=== PATIENT | female | born 1935 | race Caucasian/White ===

== ENCOUNTER 2021-12-13 14:15 | Inpatient (IN) | payer MEDICARE, OTHER ==
[~2021-12-13] VITALS: Ht 160 cm; Wt 68.6 kg
[~2021-12-13 14:15] MED LIST: CLON0.5T3 PO; ESCI10TA PO; ESOM40CA PO; MELO7.5T12 PO; MEMA10TA PO; PREG150C PO; PREG75CA PO; WARF7.5T23 PO
[2021-12-13] MEDS ORDERED: NITROGLYCERIN OINT 1 GM PACKET TP ONE ×2 (14:30→14:36)
[2021-12-13] MEDS ORDERED: ASPIRIN 325 MG TABLET PO ONE (14:30)
[2021-12-13] MEDS ORDERED: ASPIRIN 325 MG TABLET ONE (14:36)
[2021-12-13 14:49] LABS: HEMATOCRIT 34.2 % (31.2-41.9); MEAN CORPUSCULAR HEMOGLOBIN 30.7 uug (24.7-32.8); MEAN CORPUSCULAR VOLUME 91.6 fL (75.5-95.3); PLATELET COUNT (AUTO) 91 K/uL (179-408)
[2021-12-13 14:59] LABS: CARBON DIOXIDE 33 mmol/L (21-32); CHLORIDE 104 mmol/L (98-107); CREATININE 0.7 mg/dL (0.6-1.3); GLUCOSE 115 mg/dL (74-106); POTASSIUM 4.6 mmol/L (3.5-5.1); UREA NITROGEN, BLOOD 17 mg/dL (7-18)
[2021-12-13 15:08] LABS: ALANINE AMINOTRANSFERASE 23 U/L (14-59); ALKALINE PHOSPHATASE 47 U/L (50-136); ASPARTATE AMINOTRANSFERASE 19 U/L (15-37); BILIRUBIN,DIRECT 0.2 mg/dL (0.0-0.2); BILIRUBIN,TOTAL 0.3 mg/dL (0.2-1.0); TOTAL PROTEIN, SERUM 5.8 g/dL (6.4-8.2)
[2021-12-13] MEDS ORDERED: MAGNESIUM HYDROXIDE 30 ML LIQUID UDC PO PRN (15:45)
[2021-12-13] MEDS ORDERED: TEMAZEPAM 15 MG CAPSULE PO PRN (15:45)
[2021-12-13] MEDS ORDERED: REMEDY ESSENTIAL ZINC PASTE 113 GM TP PRN (15:45)
[2021-12-13] MEDS ORDERED: ONDANSETRON 4 MG/2 ML VIAL IV PRN (15:45)
[2021-12-13] MEDS ORDERED: MORPHINE SULFATE 2 MG/1 ML DISP.SYRIN IV PRN (15:45)
[2021-12-13] MEDS ORDERED: ENOXAPARIN SODIUM 40 MG/0.4 ML DISP.SYRIN SQ SCH (15:45)
[2021-12-13] MEDS ORDERED: HYDROCODONE/APAP 10-325 MG TABLET PO PRN (15:45)
[2021-12-13] MEDS ORDERED: NITROGLYCERIN 0.4 MG/TAB BOTTLE SL PRN ×2 (16:00→20:59)
--- NOTE | 2021-12-13 17:15 | NUR ---
Called third floor for telemetry bed. Stated that patient will be transferred next shift.
--- NOTE | 2021-12-13 18:09 | NUR ---
Patient is to go to room 319 next shift.
[2021-12-13] MEDS ORDERED: LANS30CA56 PO (18:38)
[2021-12-13] MEDS ORDERED: ALEN70TA80 PO (18:38)
[2021-12-13] MEDS ORDERED: CLON1TAB12 PO (18:38)
[2021-12-13] MEDS ORDERED: ATOR40TA PO (18:38)
[2021-12-13] MEDS ORDERED: LEVO75TA7 PO (18:38)
[2021-12-13] MEDS ORDERED: HOME MED MISCELLANEOUS XX SCH (19:00)
[2021-12-13] MEDS ORDERED: ENOXAPARIN SODIUM 30 MG/0.3 ML DISP.SYRIN ONE (19:40)
--- NOTE | 2021-12-13 20:36 | NUR ---
Called to give report to Delaney MEJIA, states she will call me back for report.
--- NOTE | 2021-12-13 20:48 | NUR ---
Report given to Delaney MEJIA
[2021-12-13] MEDS ORDERED: NITROGLYCERIN 0.4 MG/TAB BOTTLE SL ONE (20:54)
--- NOTE | 2021-12-13 21:48 | NUR ---
Pt. admitted to Tele room 319, under care of Jonnathan Jimenez PACK TRAIN DRIVER Belongings List completed. Pt transferred in stable condition.
[2021-12-13 21:50] VITALS: BP 150/71
[2021-12-13] MEDS: ATORVASTATIN 40 MG TABLET PO SCH (22:11)
[2021-12-13] MEDS: ACETAMINOPHEN 325 MG TABLET PO PRN (22:12)
--- NOTE | 2021-12-13 22:15 | NUR ---
Admitted tele pt from ER accompanied by ROBERTO Conner. She is alert and oriented x4, anxious, able to make needs known. Denies pain and discomfort at this time. Wants to make sure she'll be able to take her night meds. Initial and full body assessment done. IV access on L hand G#22 patent and intact. Pt refused to have urine specimen collected, stated she is cold and wants to take her night meds. All needs attended, oriented to room. Call light placed within reach. Will continue to monitor.
[2021-12-13] MEDS: DOCUSATE SODIUM 100 MG CAPSULE PO SCH (23:04)
[2021-12-13] MEDS: CLONAZEPAM 1 MG TABLET PO SCH (23:04)
[2021-12-13] MEDS: PREGABALIN 25 MG CAPSULE PO SCH (23:05)
[2021-12-14 04:59] VITALS: BP 135/54
[2021-12-14] MEDS: PANTOPRAZOLE SODIUM 40 MG TABLET.DR PO SCH (06:30)
[2021-12-14] MEDS: LEVOTHYROXINE SODIUM 75 MCG TABLET PO SCH (06:30)
[2021-12-14 06:40] LABS: HEMATOCRIT 36.6 % (31.2-41.9); MEAN CORPUSCULAR HEMOGLOBIN 31.2 uug (24.7-32.8); MEAN CORPUSCULAR VOLUME 90.7 fL (75.5-95.3); PLATELET COUNT (AUTO) 92 K/uL (179-408)
--- NOTE | 2021-12-14 07:00 | NUR ---
No complaint of chest pain, slept intermittently throughout the night. Assisted to B[facility]. NSR on tele. All needs attended. Safety precautions observed. Will endorse to next shift.
[2021-12-14 07:16] LABS: CREATININE 0.8 mg/dL (0.6-1.3); PHOSPHOROUS 4.4 mg/dL (2.5-4.9); POTASSIUM 3.9 mmol/L (3.5-5.1)
[2021-12-14 07:21] LABS: THYROID STIMULATING HORMONE 3.177 mIU/mL (0.358-3.740)
[2021-12-14 07:21] LABS: *BILIRUBIN,URIN NEGATIVE (NEGATIVE); *CLARITY,URINE CLEAR (CLEAR); *COLOR,URINE YELLOW (YELLOW); *KETONES,URINE TRACE (NEGATIVE); *UROBILINOGEN,URINE 0.2 E.U./dl (NORMAL); LEUKOCYTE ESTERASE ,URINE NEGATIVE (NEGATIVE); NITRITE, URINE NEGATIVE (NEGATIVE); PH,URINE 5.5 (5.0-8.0); UGLUCOSE NEGATIVE (NEGATIVE)
[2021-12-14 07:33] LABS: *BLOOD, URINE TRACE (NEGATIVE)
[2021-12-14 08:28] LABS: LYMPHOCYTES % (MANUAL) 37 % (20-40); MONOCYTES % (MANUAL) 11 % (2-10); NEUTROPHILS % (MANUAL) 52 % (42-75)
[2021-12-14] MEDS ORDERED: PREGABALIN 25 MG CAPSULE PO SCH (09:00)
[2021-12-14] MEDS ORDERED: CLONAZEPAM 1 MG TABLET PO SCH (09:00)
[2021-12-14] MEDS ORDERED: ONDANSETRON ODT 4 MG TAB.RAPDIS SL PRN (09:15)
[2021-12-14] MEDS: MELOXICAM 7.5 MG TABLET PO SCH (09:35)
[2021-12-14] MEDS: TRAMADOL HCL 50 MG TABLET PO PRN (09:37)
[2021-12-14] MEDS: PREGABALIN 25 MG CAPSULE PO SCH ×2 (09:38→17:54)
[2021-12-14] MEDS: ASPIRIN EC 81 MG TABLET.DR PO SCH (09:39)
[2021-12-14] MEDS: ESCITALOPRAM OXALATE 10 MG TABLET PO SCH (09:39)
[2021-12-14 11:10] VITALS: BP 132/60
[2021-12-14 15:23] VITALS: BP 111/57
[2021-12-14] MEDS: ACETAMINOPHEN 325 MG TABLET PO PRN (17:54)
--- NOTE | 2021-12-14 20:12 | NUR ---
Patient in resting in bed comfortably AALOX4 .Denies chest pain .On Ra.No s/s of distress noted.IV patent and intact on left hand.Safety measures in place. Call light with in reach. Will continue to monitor.
[2021-12-14] MEDS: CLONAZEPAM 1 MG TABLET PO SCH (20:16)
[2021-12-14] MEDS: ATORVASTATIN 40 MG TABLET PO SCH (20:16)
[2021-12-14] MEDS: DOCUSATE SODIUM 100 MG CAPSULE PO SCH (20:16)
[2021-12-14 20:46] VITALS: BP 111/57
[2021-12-15 00:29] VITALS: BP 125/57
[2021-12-15 04:34] VITALS: BP 126/52
[2021-12-15] MEDS: PANTOPRAZOLE SODIUM 40 MG TABLET.DR PO SCH (06:24)
[2021-12-15] MEDS: LEVOTHYROXINE SODIUM 75 MCG TABLET PO SCH (06:24)
--- NOTE | 2021-12-15 06:41 | NUR ---
Patient slept well. No c/o chest pain throughout the night. Compliant with medication. Will endorse to incoming shift.
[2021-12-15] MEDS: ASPIRIN EC 81 MG TABLET.DR PO SCH (08:19)
[2021-12-15] MEDS: ESCITALOPRAM OXALATE 10 MG TABLET PO SCH (08:20)
[2021-12-15] MEDS: MELOXICAM 7.5 MG TABLET PO SCH (08:20)
[2021-12-15] MEDS: PREGABALIN 25 MG CAPSULE PO SCH ×2 (08:21→16:54)
[2021-12-15] MEDS: TRAMADOL HCL 50 MG TABLET PO PRN (08:22)
[2021-12-15] MEDS ORDERED: FLEET ENEMA 133 ML BOTTLE RC ONE (10:00)
[2021-12-15 12:03] VITALS: BP 138/59
--- NOTE | 2021-12-15 13:50 | NUR ---
C/O SOB AND DIFFICULTY BREATHING. HAVING A PANIC ATTACK. VS BP 103/59, P 66, RESP. 22 & HYPERVENTILATING. O2 SATURATION 98 - 100 % ON R/A. CONNIE ROCA WHEEL FILLER NOTIFIED.
--- NOTE | 2021-12-15 14:00 | NUR ---
WENT TO CHECK ON PATIENT. DOZING & AROUSES EASILY. SMILING AT THIS TIME WITHOUT COMPLAINTS. NO RESPIRATORY COMPLAINTS.
[2021-12-15] MEDS ORDERED: LORAZEPAM 0.5 MG TABLET PO ONE (14:30)
[2021-12-15 16:50] VITALS: BP 132/75
[2021-12-18] MEDS ORDERED: ALENDRONATE SODIUM 70 MG TABLET PO SCH (09:00)
== END 2021-12-15 21:23 | disposition home or self-care (01) | DRG 392 ==
LOC: ER 14:15 → TELE3 20:51
PROVIDERS: ADMIT Nurse Practitioner Acute Care; ATTEND Nurse Practitioner Acute Care
DX: K21.9 Gastro-esophageal reflux disease without esophagitis (principal); I25.10 Atherosclerotic heart disease of native coronary artery without angina pectoris; F03.90 Unspecified dementia, unspecified severity, without behavioral disturbance, psychotic disturbance, mood disturbance, and anxiety; F32.A Depression, unspecified; Z96.653 Presence of artificial knee joint, bilateral; M19.90 Unspecified osteoarthritis, unspecified site; Z79.890 Hormone replacement therapy; Z86.711 Personal history of pulmonary embolism; Z79.01 Long term (current) use of anticoagulants; D69.6 Thrombocytopenia, unspecified; Z90.49 Acquired absence of other specified parts of digestive tract; I11.0 Hypertensive heart disease with heart failure; I50.9 Heart failure, unspecified; Z79.899 Other long term (current) drug therapy; Z90.710 Acquired absence of both cervix and uterus; R79.81 Abnormal blood-gas level
CPT/HCPCS: 36415; 70030-TC; 71045; 83735; 84100; 84443; 84484; 85025; 85610; 85730; 93005; 93307; 97161; A4663; G0378; J1650

== ENCOUNTER 2022-08-14 18:16 | Inpatient (IN) | payer MEDICARE, OTHER ==
[~2022-08-14] VITALS: Ht 154.9 cm; Wt 72.6 kg
[~2022-08-14 18:16] MED LIST changes: +ALEN70TA80 PO; +ATOR40TA PO; -CLON0.5T3 PO; +CLON1TAB12 PO; -ESOM40CA PO; +LANS30CA56 PO; +LEVO75TA7 PO; -MEMA10TA PO; -PREG150C PO; -WARF7.5T23 PO
[2022-08-14] MEDS ORDERED: ONDANSETRON 4 MG/2 ML VIAL IV ONE (18:30)
[2022-08-14] MEDS ORDERED: ONDANSETRON 4 MG/2 ML VIAL ONE (18:32)
[2022-08-14] MEDS ORDERED: HYDR30CR77 RC (18:44)
[2022-08-14] MEDS ORDERED: ESCI20TA44 MT (18:44)
[2022-08-14] MEDS ORDERED: POLY17PO4 PO (18:44)
[2022-08-14] MEDS ORDERED: ATOR10TA PO (18:44)
[2022-08-14] MEDS ORDERED: FURO40TA5 MT (18:44)
[2022-08-14] MEDS ORDERED: MELO-107 MT (18:44)
[2022-08-14 18:51] LABS: HEMATOCRIT 37.6 % (31.2-41.9); MEAN CORPUSCULAR HEMOGLOBIN 29.8 uug (24.7-32.8); MEAN CORPUSCULAR VOLUME 89.3 fL (75.5-95.3); PLATELET COUNT (AUTO) 114 K/uL (179-408)
[2022-08-14 18:59] LABS: CREATININE 0.9 mg/dL (0.6-1.3)
[2022-08-14 19:05] LABS: BILIRUBIN,TOTAL 0.6 mg/dL (0.2-1.0); TOTAL PROTEIN, SERUM 8.3 g/dL (6.4-8.2)
[2022-08-14] MEDS ORDERED: IOHEXOL 300MG/ML 100 ML INFUS..BTL ONE (19:09)
[2022-08-14] MEDS ORDERED: IV NORMAL SALINE 250 ML IV ONE (19:10)
[2022-08-14] MEDS ORDERED: SWABABLE VALVE TRANSFER SET EA MC ONE (19:10)
[2022-08-14] MEDS ORDERED: ACETAMINOPHEN 325 MG TABLET PO ONE (20:30)
[2022-08-14] MEDS ORDERED: ACETAMINOPHEN 325 MG TABLET ONE (20:44)
[2022-08-14] MEDS ORDERED: MINERAL OIL FLEET ENEMA 133 ML BOTTLE RC ONE (22:00)
[2022-08-14] MEDS ORDERED: FLEET ENEMA 133 ML BOTTLE RC ONE (22:04)
[2022-08-14] MEDS: MAGNESIUM CITRATE 296 ML BOTTLE PO ONE ×2 (22:13→22:15)
[2022-08-15] MEDS ORDERED: LACTULOSE 20 G/30 ML LIQUID UDC PO ONE ×2 (01:15→03:15)
[2022-08-15] MEDS ORDERED: ONDANSETRON 4 MG/2 ML VIAL IV PRN (01:15)
[2022-08-15] MEDS ORDERED: ACETAMINOPHEN 325 MG TABLET PO PRN (01:15)
[2022-08-15 02:43] VITALS: BP 143/62
[2022-08-15] MEDS: LEVOTHYROXINE SODIUM 75 MCG TABLET PO SCH (06:15)
[2022-08-15] MEDS: PANTOPRAZOLE SODIUM 40 MG TABLET.DR PO SCH (06:15)
[2022-08-15] MEDS: MIRALAX 17 GM POWD.PACK PO SCH ×2 (08:39→09:00)
[2022-08-15] MEDS: FUROSEMIDE 40 MG TABLET PO SCH (08:39)
[2022-08-15] MEDS: DOCUSATE SODIUM 100 MG CAPSULE PO SCH ×3 (08:39→17:00)
[2022-08-15] MEDS: LACTULOSE 20 G/30 ML LIQUID UDC PO SCH ×3 (08:39→17:00)
[2022-08-15] MEDS: ESCITALOPRAM OXALATE 10 MG TABLET PO SCH (08:39)
[2022-08-15] MEDS: MELOXICAM 7.5 MG TABLET PO SCH (08:39)
[2022-08-15] MEDS: PREGABALIN 25 MG CAPSULE PO SCH ×2 (08:40→17:45)
[2022-08-15] MEDS ORDERED: MEMA10TA PO (10:21)
[2022-08-15 11:02] VITALS: BP 118/53
[2022-08-15 15:04] VITALS: BP 114/49
[2022-08-15] MEDS: MEMANTINE HCL 10 MG TABLET PO SCH (17:45)
[2022-08-15 20:00] VITALS: BP 107/31
[2022-08-15] MEDS: ATORVASTATIN 40 MG TABLET PO SCH (20:12)
[2022-08-15 21:08] VITALS: BP 110/58
[2022-08-15] MEDS: CLONAZEPAM 1 MG TABLET PO PRN (21:08)
[2022-08-16 04:00] VITALS: BP 120/55
[2022-08-16] MEDS: LEVOTHYROXINE SODIUM 75 MCG TABLET PO SCH (06:14)
[2022-08-16] MEDS: PANTOPRAZOLE SODIUM 40 MG TABLET.DR PO SCH (06:14)
[2022-08-16 06:17] LABS: MEAN CORPUSCULAR HEMOGLOBIN 29.4 uug (24.7-32.8); MEAN CORPUSCULAR VOLUME 90.2 fL (75.5-95.3); PLATELET COUNT (AUTO) 101 K/uL (179-408)
[2022-08-16 06:37] LABS: BILIRUBIN,TOTAL 0.4 mg/dL (0.2-1.0); CREATININE 0.6 mg/dL (0.6-1.3); PHOSPHOROUS 3.7 mg/dL (2.5-4.9); POTASSIUM 3.9 mmol/L (3.5-5.1); TOTAL PROTEIN, SERUM 5.9 g/dL (6.4-8.2)
[2022-08-16] MEDS: MEMANTINE HCL 10 MG TABLET PO SCH ×2 (09:15→18:01)
[2022-08-16] MEDS: MIRALAX 17 GM POWD.PACK PO SCH (09:15)
[2022-08-16] MEDS: MELOXICAM 7.5 MG TABLET PO SCH (09:15)
[2022-08-16] MEDS: FUROSEMIDE 40 MG TABLET PO SCH (09:15)
[2022-08-16] MEDS: PREGABALIN 25 MG CAPSULE PO SCH ×2 (09:15→18:01)
[2022-08-16] MEDS: ESCITALOPRAM OXALATE 10 MG TABLET PO SCH (09:15)
[2022-08-16] MEDS: LACTULOSE 20 G/30 ML LIQUID UDC PO SCH ×2 (09:15→18:01)
[2022-08-16 11:47] VITALS: BP 126/56
[2022-08-16 16:00] VITALS: BP 114/42
[2022-08-16 20:27] VITALS: BP 110/52
[2022-08-16] MEDS: ATORVASTATIN 40 MG TABLET PO SCH (20:30)
[2022-08-16] MEDS: CLONAZEPAM 1 MG TABLET PO PRN (20:31)
[2022-08-17 04:49] VITALS: BP 104/43
[2022-08-17] MEDS: PANTOPRAZOLE SODIUM 40 MG TABLET.DR PO SCH (06:27)
[2022-08-17] MEDS: LEVOTHYROXINE SODIUM 75 MCG TABLET PO SCH (06:27)
[2022-08-17] MEDS: MIRALAX 17 GM POWD.PACK PO SCH (08:15)
[2022-08-17] MEDS: MEMANTINE HCL 10 MG TABLET PO SCH ×2 (08:15→16:05)
[2022-08-17] MEDS: LACTULOSE 20 G/30 ML LIQUID UDC PO SCH ×2 (08:15→16:05)
[2022-08-17] MEDS: ESCITALOPRAM OXALATE 10 MG TABLET PO SCH (08:15)
[2022-08-17] MEDS: PREGABALIN 25 MG CAPSULE PO SCH ×2 (08:16→16:05)
[2022-08-17] MEDS: FUROSEMIDE 40 MG TABLET PO SCH (08:16)
[2022-08-17] MEDS: MELOXICAM 7.5 MG TABLET PO SCH (08:16)
[2022-08-17 11:59] VITALS: BP 113/53
[2022-08-17 15:26] VITALS: BP 107/45
[2022-08-17] MEDS ORDERED: SIME80TA15 PO (19:06)
[2022-08-17] MEDS ORDERED: SIMETHICONE 80 MG TAB.CHEW PO ONE (19:15)
[2022-08-17] MEDS ORDERED: LACTULOSE 20 G/30 ML LIQUID UDC PO ONE (19:30)
[2022-08-17 20:00] VITALS: BP 113/36
[2022-08-17] MEDS: ATORVASTATIN 40 MG TABLET PO SCH (20:13)
[2022-08-17] MEDS: CLONAZEPAM 1 MG TABLET PO PRN (20:36)
[2022-08-18 04:00] VITALS: BP 102/44
[2022-08-18] MEDS: LEVOTHYROXINE SODIUM 75 MCG TABLET PO SCH (06:40)
[2022-08-18] MEDS: PANTOPRAZOLE SODIUM 40 MG TABLET.DR PO SCH (06:40)
[2022-08-18] MEDS: ESCITALOPRAM OXALATE 10 MG TABLET PO SCH (08:09)
[2022-08-18] MEDS: MELOXICAM 7.5 MG TABLET PO SCH (08:09)
[2022-08-18] MEDS: PREGABALIN 25 MG CAPSULE PO SCH (08:09)
[2022-08-18] MEDS: MIRALAX 17 GM POWD.PACK PO SCH (08:09)
[2022-08-18] MEDS: MEMANTINE HCL 10 MG TABLET PO SCH (08:09)
[2022-08-18] MEDS: FUROSEMIDE 40 MG TABLET PO SCH (08:09)
[2022-08-18] MEDS: LACTULOSE 20 G/30 ML LIQUID UDC PO SCH (08:10)
[2022-08-19] MEDS ORDERED: ALENDRONATE SODIUM 70 MG TABLET PO SCH (06:00)
== END 2022-08-18 11:18 | disposition home or self-care (01) | DRG 388 ==
LOC: ER 18:21 → TELE3 08-15 01:51 → MEDSURG3 08-15 02:20
PROVIDERS: ADMIT Internal Medicine; ATTEND Internal Medicine
DX: K56.41 Fecal impaction (principal); N17.0 Acute kidney failure with tubular necrosis; K52.89 Other specified noninfective gastroenteritis and colitis; E86.0 Dehydration; N32.0 Bladder-neck obstruction; I11.0 Hypertensive heart disease with heart failure; I50.9 Heart failure, unspecified; K21.9 Gastro-esophageal reflux disease without esophagitis; Z86.711 Personal history of pulmonary embolism; Z88.6 Allergy status to analgesic agent; Z88.5 Allergy status to narcotic agent; Z79.899 Other long term (current) drug therapy; M19.90 Unspecified osteoarthritis, unspecified site; Z95.828 Presence of other vascular implants and grafts; F03.90 Unspecified dementia, unspecified severity, without behavioral disturbance, psychotic disturbance, mood disturbance, and anxiety; E03.9 Hypothyroidism, unspecified; Z79.890 Hormone replacement therapy
CPT/HCPCS: 36415; 74018; 83690; 84100; 85025; A4663; G0378; J2405; Q9967

== ENCOUNTER 2022-12-22 16:08 | Inpatient (IN) | payer MEDICARE, OTHER ==
[~2022-12-22] VITALS: Ht 160 cm; Wt 63.0 kg
[~2022-12-22 16:08] MED LIST changes: +FURO40TA5 MT; +HYDR30CR77 RC; +MEMA10TA PO; +POLY17PO4 PO; +SIME80TA15 PO
--- NOTE | 2022-12-22 16:15 | NUR ---
MEDICATION RECONCILIATION: Patient unable to provide any information about current home medications at this time.
[2022-12-22 16:44] LABS: HEMATOCRIT 35.1 % (31.2-41.9); MEAN CORPUSCULAR HEMOGLOBIN 30.8 uug (24.7-32.8); PLATELET COUNT (AUTO) 102 K/uL (179-408)
[2022-12-22 16:56] LABS: CARBON DIOXIDE 28 mmol/L (21-32); CHLORIDE 105 mmol/L (98-107); CREATININE 0.9 mg/dL (0.6-1.3); POTASSIUM 4.6 mmol/L (3.5-5.1); UREA NITROGEN, BLOOD 18 mg/dL (7-18)
[2022-12-22 17:09] LABS: ALANINE AMINOTRANSFERASE < 6 U/L (14-59); ALKALINE PHOSPHATASE 78 U/L (50-136); ASPARTATE AMINOTRANSFERASE < 5 U/L (15-37); BILIRUBIN,DIRECT 0.2 mg/dL (0.0-0.2); BILIRUBIN,TOTAL 0.4 mg/dL (0.2-1.0); TOTAL PROTEIN, SERUM 6.6 g/dL (6.4-8.2)
[2022-12-22] MEDS ORDERED: HYDROMORPHONE 1 MG/1 ML DISP.SYRIN ONE ×2 (17:55→18:29)
[2022-12-22] MEDS ORDERED: ONDANSETRON 4 MG/2 ML VIAL ONE (17:55)
[2022-12-22] MEDS ORDERED: HYDROMORPHONE 1 MG/1 ML DISP.SYRIN IV ONE ×2 (18:00→18:30)
[2022-12-22] MEDS ORDERED: ONDANSETRON 4 MG/2 ML VIAL IV ONE (18:00)
--- NOTE | 2022-12-22 19:30 | NUR ---
Patient in room laying on gurny c/o mild left leg pain and back pain. Patient is A/Ox3 with period of forgetfulness. No other distress noted.
--- NOTE | 2022-12-22 19:37 | NUR ---
Gave report to Adin (RN).
--- NOTE | 2022-12-22 20:30 | NUR ---
Received Patient via juno, with RN, Adin. Patient reports she is in severe pain, will continue to monitor and continue plan of care. Addendum: 12/23/22 at 0644 by RACHELLE MCGILL RN wrong patient, disregard
[2022-12-22] MEDS ORDERED: MAGNESIUM HYDROXIDE 30 ML LIQUID UDC PO PRN (21:00)
[2022-12-22] MEDS ORDERED: ACETAMINOPHEN 325 MG TABLET PO PRN (21:00)
[2022-12-22] MEDS ORDERED: ONDANSETRON 4 MG/2 ML VIAL IV PRN (21:00)
[2022-12-22] MEDS ORDERED: REMEDY ESSENTIAL ZINC PASTE 113 GM TP PRN (21:00)
[2022-12-22] MEDS ORDERED: HYDROCODONE/APAP 5-325MG TABLET PO PRN (21:00)
--- NOTE | 2022-12-22 21:18 | NUR ---
Attempted to give report to 3rd floor nurse but is not available to take report at this time.
--- NOTE | 2022-12-22 21:56 | NUR ---
Attempted to give report to 3rd floor nurse but is unavailable at this time.
--- NOTE | 2022-12-22 22:15 | NUR ---
SBAR report given to ROBERTO Wylie via telephone.
--- NOTE | 2022-12-22 22:26 | NUR ---
Almaz molina in [facility] - 12/22/22 at 2227 by KARY Pt trans to room 306, NAD noted.
--- NOTE | 2022-12-22 22:27 | NUR ---
Pt trans to room 307, NAD noted.
--- NOTE | 2022-12-22 22:30 | NUR ---
Received Patient via juno, with RN, Adin. Patient reports she is in severe pain, will continue to monitor and continue plan of care.
[2022-12-22 23:33] LABS: *BILIRUBIN,URIN NEGATIVE (NEGATIVE); *BLOOD, URINE 2+ (NEGATIVE); *COLOR,URINE YELLOW (YELLOW); *KETONES,URINE NEGATIVE (NEGATIVE); *UROBILINOGEN,URINE 0.2 E.U./dl (NORMAL); LEUKOCYTE ESTERASE ,URINE 1+ (NEGATIVE); NITRITE, URINE NEGATIVE (NEGATIVE); UGLUCOSE NEGATIVE (NEGATIVE)
[2022-12-22 23:47] LABS: *CLARITY,URINE HAZY (CLEAR)
[2022-12-23] MEDS: ENOXAPARIN SODIUM 30 MG/0.3 ML DISP.SYRIN SQ SCH ×2 (00:02→20:31)
[2022-12-23] MEDS: MORPHINE SULFATE 2 MG/1 ML DISP.SYRIN IV PRN ×3 (00:03→15:56)
[2022-12-23 01:06] LABS: BACTERIA,URINE FEW /HPF (NONE SEEN); SQUAMOUS EPITHELIAL CELL,UR FEW /HPF (NONE SEEN)
[2022-12-23] MEDS: HYDROCODONE/APAP 10-325 MG TABLET PO PRN ×3 (01:51→21:43)
[2022-12-23] MEDS: PANTOPRAZOLE SODIUM 40 MG TABLET.DR PO SCH (06:15)
--- NOTE | 2022-12-23 06:45 | NUR ---
Patient reported on multiple events she is in severe pain, PRN medication given to manage pain. Hourly rounding down. Safety Measures in place. Continue to monitor and continue plan of care.
[2022-12-23 06:48] LABS: CARBON DIOXIDE 32 mmol/L (21-32); CHLORIDE 106 mmol/L (98-107); CREATININE 0.7 mg/dL (0.6-1.3); MAGNESIUM 1.8 mg/dL (1.8-2.4); PHOSPHOROUS 3.4 mg/dL (2.5-4.9); POTASSIUM 4.3 mmol/L (3.5-5.1); UREA NITROGEN, BLOOD 15 mg/dL (7-18)
[2022-12-23 06:57] LABS: HEMATOCRIT 33.9 % (31.2-41.9); MEAN CORPUSCULAR VOLUME 92.3 fL (75.5-95.3); PLATELET COUNT (AUTO) 90 K/uL (179-408)
[2022-12-23 08:00] VITALS: BP 106/51; TEMP 97.8; O2SAT 98
--- NOTE | 2022-12-23 08:00 | NUR ---
Received patient lying in bed awake, alert and oriented, with IV cannula at right hand g.22 intact and patent. Vital signs taken and recorded. Due medications given. [place] 10-325mg tab given prn for pain, patient was seen by physical therapist and Dr. Kingsley. Tolerated cardiac diet with aspiration precaution. Observed accordingly, needs attended
[2022-12-23] MEDS ORDERED: LINA290C PO (08:56)
[2022-12-23 11:32] VITALS: BP 104/40; TEMP 97.6; O2SAT 98
[2022-12-23 11:36] LABS: THYROID STIMULATING HORMONE 3.481 mIU/mL (0.358-3.740)
[2022-12-23 12:45] LABS: EOSINOPHILS % (MANUAL) 3 % (0-8); LYMPHOCYTES % (MANUAL) 39 % (20-40); MONOCYTES % (MANUAL) 5 % (2-10); NEUTROPHILS % (MANUAL) 52 % (42-75)
[2022-12-23] MEDS: ESCITALOPRAM OXALATE 10 MG TABLET PO SCH (14:20)
[2022-12-23] MEDS: CEFTRIAXONE 1 G in IV DEXTROSE 5% 50 ML IV SCH (15:44)
[2022-12-23 16:00] VITALS: BP 109/43; TEMP 98.1; O2SAT 98
--- NOTE | 2022-12-23 16:00 | NUR ---
Seen patient crying and moaning in bed complaining of pain at left hip and legs, Morphine 2mg IV given as ordered. Vital signs taken and recorded. Keep monitored, observed for any untoward signs and symptoms. Attended
[2022-12-23] MEDS ORDERED: Medication Not On Formulary EA (Pregabalin (Lyrica) 75 MG) PO SCH (17:00)
[2022-12-23] MEDS: MEMANTINE HCL 10 MG TABLET PO SCH (17:51)
[2022-12-23] MEDS: PREGABALIN 25 MG CAPSULE PO SCH (17:51)
[2022-12-23 20:00] VITALS: BP 133/54; TEMP 97.8
[2022-12-23] MEDS ORDERED: TEMAZEPAM 15 MG CAPSULE PO PRN (21:00)
[2022-12-24] MEDS: HYDROCODONE/APAP 10-325 MG TABLET PO PRN (03:40)
[2022-12-24 05:00] VITALS: BP 120/51; TEMP 98.5; O2SAT 96
[2022-12-24] MEDS: PANTOPRAZOLE SODIUM 40 MG TABLET.DR PO SCH (06:26)
[2022-12-24] MEDS: LEVOTHYROXINE SODIUM 75 MCG TABLET PO SCH (06:26)
[2022-12-24 06:45] LABS: HEMATOCRIT 36.7 % (31.2-41.9); MEAN CORPUSCULAR HEMOGLOBIN 31.5 uug (24.7-32.8); MEAN CORPUSCULAR VOLUME 92.8 fL (75.5-95.3); PLATELET COUNT (AUTO) 105 K/uL (179-408)
[2022-12-24 07:00] LABS: CARBON DIOXIDE 34 mmol/L (21-32); CHLORIDE 103 mmol/L (98-107); CREATININE 0.6 mg/dL (0.6-1.3); PHOSPHOROUS 3.9 mg/dL (2.5-4.9); UREA NITROGEN, BLOOD 11 mg/dL (7-18)
--- NOTE | 2022-12-24 07:29 | NUR ---
REPORT GIVEN TO ROBERTO DE ANDA
[2022-12-24 08:00] VITALS: BP 128/58; TEMP 98.2; O2SAT 96
[2022-12-24] MEDS: PREGABALIN 25 MG CAPSULE PO SCH ×2 (08:21→17:08)
[2022-12-24] MEDS: MEMANTINE HCL 10 MG TABLET PO SCH ×2 (08:21→17:08)
[2022-12-24] MEDS: ESCITALOPRAM OXALATE 10 MG TABLET PO SCH (08:21)
[2022-12-24] MEDS: CLONAZEPAM 1 MG TABLET PO SCH (08:21)
[2022-12-24] MEDS: MIRALAX 17 GM POWD.PACK PO SCH (08:21)
[2022-12-24] MEDS ORDERED: Linaclotide (Linzess) 290 MCG) PO SCH (09:00)
--- NOTE | 2022-12-24 09:55 | NUR ---
Received patient lying in bed awake, alert and oriented. No signs of distress, no , no complain. Vital signs taken and recorded. Due medications given. Seen by physical therapist ambulates using the walker. [place] catheter connected to urine bag draining well. Attended
--- NOTE | 2022-12-24 13:30 | NUR ---
Patient has episodes of confusion and disorientation trying to get out of bed, standing and taking off her clothes. Placed patient back to bed. Oriented patient that she is in the hospital. Served lunch and tolerated food. Due medication given. Continue monitoring, attended.
[2022-12-24] MEDS: CEFTRIAXONE 1 G in IV DEXTROSE 5% 50 ML IV SCH (14:58)
[2022-12-24 15:43] VITALS: BP 106/45; TEMP 98; O2SAT 99
[2022-12-24 20:00] VITALS: BP 139/63; TEMP 98.3; O2SAT 98
[2022-12-24] MEDS: ENOXAPARIN SODIUM 30 MG/0.3 ML DISP.SYRIN SQ SCH (20:17)
--- NOTE | 2022-12-24 20:41 | NUR ---
pt rsting; had her Lovenox; denies pain at this time; refusing dinner still.
[2022-12-25] MEDS: HYDROCODONE/APAP 10-325 MG TABLET PO PRN ×2 (03:53→11:58)
[2022-12-25 04:00] VITALS: BP 126/52; TEMP 98.5; O2SAT 96
[2022-12-25] MEDS: LEVOTHYROXINE SODIUM 75 MCG TABLET PO SCH (06:07)
[2022-12-25] MEDS: PANTOPRAZOLE SODIUM 40 MG TABLET.DR PO SCH (06:07)
--- NOTE | 2022-12-25 06:55 | NUR ---
Pt rested well in between care; no acute distress; c/o pain x1 norco given as ordered; repositioned for comfort; safety maintained;
--- NOTE | 2022-12-25 08:00 | NUR ---
Awake, alert, oriented x3. Denies pain. Repositioned comfortably. Assisted with oral care.
[2022-12-25] MEDS: MEMANTINE HCL 10 MG TABLET PO SCH ×2 (08:47→17:11)
[2022-12-25] MEDS: CLONAZEPAM 1 MG TABLET PO SCH (08:47)
[2022-12-25] MEDS: MIRALAX 17 GM POWD.PACK PO SCH (08:47)
[2022-12-25] MEDS: ESCITALOPRAM OXALATE 10 MG TABLET PO SCH (08:47)
[2022-12-25] MEDS: PREGABALIN 25 MG CAPSULE PO SCH ×2 (08:47→17:11)
[2022-12-25 11:06] VITALS: BP 117/44; TEMP 98.2; O2SAT 97
--- NOTE | 2022-12-25 11:58 | NUR ---
Reports of pain, crying. [place] 10/325 po given as ordered
[2022-12-25] MEDS: CEFTRIAXONE 1 G in IV DEXTROSE 5% 50 ML IV SCH (14:49)
[2022-12-25] MEDS ORDERED: TEMA15CA PO ×2 (15:33→19:54)
[2022-12-25] MEDS ORDERED: MAGN400O6 PO ×2 (15:33→19:54)
[2022-12-25] MEDS ORDERED: ACET325T53 PO (15:33)
[2022-12-25] MEDS ORDERED: HYDR-4209 PO (15:33)
[2022-12-25] MEDS ORDERED: CEFT1VIA15 IV (15:33)
[2022-12-25 15:51] VITALS: BP 100/44; O2SAT 95
--- NOTE | 2022-12-25 16:02 | NUR ---
Still sleeping. VS stable
[2022-12-25 16:04] VITALS: BP 100/45; TEMP 98.4; O2SAT 96
--- NOTE | 2022-12-25 17:16 | NUR ---
Easily aroused for dinner. Repositioned comfortably
--- NOTE | 2022-12-25 18:01 | NUR ---
With discharge order to ARU, services transferred.
[2022-12-25] MEDS ORDERED: PREG75CA PO (19:54)
[2022-12-25] MEDS ORDERED: POLY119P2 PO (19:54)
[2022-12-25] MEDS ORDERED: CEFT1FRO2 IV (19:54)
[2022-12-25] MEDS ORDERED: MEMA10TA PO (19:54)
[2022-12-25] MEDS ORDERED: HYDR-3972 PO (19:54)
[2022-12-25] MEDS ORDERED: ACET-3117 PO (19:54)
[2022-12-25] MEDS ORDERED: CLON1TAB12 PO (19:54)
[2022-12-25] MEDS ORDERED: ALEN70TA80 PO (19:54)
[2022-12-25] MEDS ORDERED: ESCI20TA PO (19:54)
[2022-12-25] MEDS ORDERED: LINA290C PO (19:54)
[2022-12-25] MEDS ORDERED: LEVO75TA7 PO (19:54)
[2022-12-26] MEDS ORDERED: HYDR-3980 PO (09:22)
[2022-12-26] MEDS ORDERED: HYDR-4209 PO (09:22)
[2022-12-28] MEDS ORDERED: ALENDRONATE SODIUM 70 MG TABLET PO SCH (06:30)
== END 2022-12-25 18:04 | DRG 552 ==
LOC: ER 16:08 → MEDSURG3 22:22
PROVIDERS: ADMIT Internal Medicine; ATTEND Internal Medicine
DX: M51.16 Intervertebral disc disorders with radiculopathy, lumbar region (principal); N39.0 Urinary tract infection, site not specified; I50.32 Chronic diastolic (congestive) heart failure; D68.69 Other thrombophilia; F03.93 Unspecified dementia, unspecified severity, with mood disturbance; K21.9 Gastro-esophageal reflux disease without esophagitis; E03.9 Hypothyroidism, unspecified; E78.5 Hyperlipidemia, unspecified; G89.29 Other chronic pain; I11.0 Hypertensive heart disease with heart failure; I25.10 Atherosclerotic heart disease of native coronary artery without angina pectoris; I44.0 Atrioventricular block, first degree; K59.00 Constipation, unspecified; Z86.711 Personal history of pulmonary embolism; M19.90 Unspecified osteoarthritis, unspecified site; F32.A Depression, unspecified; Z74.09 Other reduced mobility; Z95.828 Presence of other vascular implants and grafts; Z90.710 Acquired absence of both cervix and uterus; Z96.653 Presence of artificial knee joint, bilateral
CPT/HCPCS: 36415; 70030-TC; 71045; 71250; 83605; 83735; 84100; 84443; 84484; 85025; 85651; 85730; 86140; 87040; 93005; G0378; J0696; J1170; J1650; J2270; J2405

== ENCOUNTER 2023-01-08 20:15 | Inpatient (IN) | payer MEDICARE, OTHER ==
[~2023-01-08] VITALS: Ht 160 cm; Wt 63.0 kg
[~2023-01-08 20:15] MED LIST changes: +ACET325T53 PO; -ATOR40TA PO; +CEFT1VIA15 IV; -FURO40TA5 MT; -HYDR30CR77 RC; -LANS30CA56 PO; +LINA290C PO; +MAGN400O6 PO; -MELO7.5T12 PO; -POLY17PO4 PO; -SIME80TA15 PO; +TEMA15CA PO
[2023-01-08 20:57] LABS: BASOPHILS % (AUTO) 0.4 % (0.0-2.0); EOSINOPHILS # (AUTO) 0.1 K/uL (0.0-0.7); HEMATOCRIT 37.4 % (31.2-41.9); HEMOGLOBIN 12.3 g/dL (10.9-14.3); LYMPHOCYTES # (AUTO) 1.4 K/uL (0.8-4.8); MEAN CORPUSCULAR HGB CONC 33 g/dL (32.3-35.6); MEAN CORPUSCULAR VOLUME 94.5 fL (75.5-95.3); MONOCYTES # (AUTO) 0.9 K/uL (0.1-1.30); NEUTROPHILS # (AUTO) 3.3 K/uL (1.8-8.9); NEUTROPHILS % (AUTO) 58.4 % (38.5-71.5); PLATELET COUNT (AUTO) 178 K/uL (179-408); RED BLOOD CELL COUNT(AUTO) 3.96 MIL/uL (3.63-4.92); RED CELL DISTRIBUTION WIDTH 14.3 % (12.3-17.7); WHITE BLOOD COUNT (AUTO) 5.7 K/uL (3.8-11.8)
[2023-01-08 21:06] LABS: DIFFERENTIAL COMMENT 1; LYMPHOCYTES % (AUTO) 26.1 % (20.5-51.5); MONOCYTES % (AUTO) 13.1 % (0.0-11.0)
[2023-01-08 21:15] LABS: CALCIUM 9.1 mg/dL (8.5-10.1); CARBON DIOXIDE 31 mmol/L (21-32); CHLORIDE 97 mmol/L (98-107); CREATININE 0.7 mg/dL (0.6-1.3); GLUCOSE 218 mg/dL (74-106); POTASSIUM 4.8 mmol/L (3.5-5.1); SODIUM SERUM 133 mmol/L (136-145); UREA NITROGEN, BLOOD 25 mg/dL (7-18)
[2023-01-08 21:19] LABS: ALANINE AMINOTRANSFERASE 18 U/L (14-59); ALBUMIN 3.2 g/dL (3.4-5.0); ALKALINE PHOSPHATASE 63 U/L (50-136); ASPARTATE AMINOTRANSFERASE 10 U/L (15-37); BILIRUBIN,DIRECT 0.1 mg/dL (0.0-0.2); BILIRUBIN,TOTAL 0.4 mg/dL (0.2-1.0); TOTAL PROTEIN, SERUM 6.9 g/dL (6.4-8.2)
[2023-01-08] MEDS ORDERED: IV NORMAL SALINE 500 ML BAG IV ONE (21:30)
[2023-01-08] MEDS ORDERED: ACETAMINOPHEN ES 500 MG TABLET PO ONE (22:15)
[2023-01-08] MEDS ORDERED: ACETAMINOPHEN 325 MG TABLET PO PRN (22:15)
[2023-01-08] MEDS ORDERED: TEMAZEPAM 15 MG CAPSULE PO PRN (22:15)
[2023-01-08] MEDS ORDERED: ACETAMINOPHEN 325 MG TABLET-SA PATIENTS-PAIN ONLY PO PRN (22:15)
[2023-01-08] MEDS ORDERED: ONDANSETRON 4 MG/2 ML VIAL IV PRN (22:15)
[2023-01-09] MEDS ORDERED: ACETAMINOPHEN ES 500 MG TABLET PO ONE (00:15)
[2023-01-09 00:22] VITALS: BP 151/57; TEMP 98.1; O2SAT 97
[2023-01-09] MEDS: TEMAZEPAM 15 MG CAPSULE PO PRN ×2 (00:52→22:52)
[2023-01-09 04:00] VITALS: BP_SYST 121; BP_SYST 92; BP_DIAS 49; BP_DIAS 55; TEMP 98.1; TEMP 98.4; O2SAT 94; O2SAT 99
[2023-01-09] MEDS: LEVOTHYROXINE SODIUM 75 MCG TABLET PO SCH (06:51)
[2023-01-09] MEDS: PANTOPRAZOLE SODIUM 40 MG TABLET.DR PO SCH (06:51)
[2023-01-09 07:40] LABS: BASOPHILS % (AUTO) 0.4 % (0.0-2.0); EOSINOPHILS # (AUTO) 0.1 K/uL (0.0-0.7); EOSINOPHILS % (AUTO) 1.8 % (0.0-7.0); HEMATOCRIT 34.2 % (31.2-41.9); HEMOGLOBIN 11.5 g/dL (10.9-14.3); LYMPHOCYTES # (AUTO) 1.1 K/uL (0.8-4.8); LYMPHOCYTES % (AUTO) 21.2 % (20.5-51.5); MEAN CORPUSCULAR HEMOGLOBIN 31.6 uug (24.7-32.8); MEAN CORPUSCULAR HGB CONC 34 g/dL (32.3-35.6); MEAN CORPUSCULAR VOLUME 93.7 fL (75.5-95.3); MONOCYTES # (AUTO) 0.8 K/uL (0.1-1.30); MONOCYTES % (AUTO) 15.3 % (0.0-11.0); NEUTROPHILS # (AUTO) 3.2 K/uL (1.8-8.9); NEUTROPHILS % (AUTO) 61.3 % (38.5-71.5); PLATELET COUNT (AUTO) 163 K/uL (179-408); RED BLOOD CELL COUNT(AUTO) 3.65 MIL/uL (3.63-4.92); RED CELL DISTRIBUTION WIDTH 14.1 % (12.3-17.7); WHITE BLOOD COUNT (AUTO) 5.2 K/uL (3.8-11.8)
[2023-01-09 08:19] LABS: ALANINE AMINOTRANSFERASE 17 U/L (14-59); ALBUMIN 2.9 g/dL (3.4-5.0); ALKALINE PHOSPHATASE 59 U/L (50-136); ASPARTATE AMINOTRANSFERASE 6 U/L (15-37); BILIRUBIN,TOTAL 0.5 mg/dL (0.2-1.0); CALCIUM 8.8 mg/dL (8.5-10.1); CARBON DIOXIDE 29 mmol/L (21-32); CHLORIDE 103 mmol/L (98-107); CREATINE KINASE, TOTAL 14 U/L (26-192); CREATININE 0.6 mg/dL (0.6-1.3); GLUCOSE 176 mg/dL (74-106); MAGNESIUM 2.2 mg/dL (1.8-2.4); PHOSPHOROUS 3.5 mg/dL (2.5-4.9); POTASSIUM 4.4 mmol/L (3.5-5.1); SODIUM SERUM 138 mmol/L (136-145); TOTAL PROTEIN, SERUM 6.1 g/dL (6.4-8.2); UREA NITROGEN, BLOOD 19 mg/dL (7-18)
[2023-01-09 08:26] LABS: DIFFERENTIAL COMMENT 1
[2023-01-09] MEDS: PREGABALIN 25 MG CAPSULE PO SCH ×2 (08:34→17:50)
[2023-01-09] MEDS: CLONAZEPAM 1 MG TABLET PO SCH (08:34)
[2023-01-09] MEDS: ESCITALOPRAM OXALATE 10 MG TABLET PO SCH (08:34)
[2023-01-09] MEDS: MEMANTINE HCL 10 MG TABLET PO SCH ×2 (08:34→17:50)
[2023-01-09 08:49] LABS: LYMPHOCYTES % (MANUAL) 0 % (20-40); NEUTROPHILS % (MANUAL) 0 % (42-75)
[2023-01-09] MEDS ORDERED: Medication Not On Formulary EA (Linaclotide (Linzess) 290 MCG) PO SCH (09:00)
[2023-01-09 11:05] VITALS: BP 118/49; TEMP 98.2; O2SAT 99
[2023-01-09 15:04] VITALS: BP 111/45; TEMP 97.4; O2SAT 97
[2023-01-09 20:00] VITALS: BP 110/52; TEMP 98.4; O2SAT 95
[2023-01-09] MEDS: MAGNESIUM HYDROXIDE 30 ML LIQUID UDC PO PRN (22:53)
[2023-01-10 04:00] VITALS: BP 112/47; TEMP 97.9; O2SAT 97
[2023-01-10] MEDS: LEVOTHYROXINE SODIUM 75 MCG TABLET PO SCH ×2 (06:00→06:31)
[2023-01-10] MEDS: PANTOPRAZOLE SODIUM 40 MG TABLET.DR PO SCH ×2 (06:31→06:32)
[2023-01-10 07:30] VITALS: BP 113/49; TEMP 97.6; O2SAT 96
[2023-01-10] MEDS: CLONAZEPAM 1 MG TABLET PO SCH (08:29)
[2023-01-10] MEDS: ESCITALOPRAM OXALATE 10 MG TABLET PO SCH (08:30)
[2023-01-10] MEDS: MEMANTINE HCL 10 MG TABLET PO SCH ×2 (08:30→17:24)
[2023-01-10] MEDS: PREGABALIN 25 MG CAPSULE PO SCH ×2 (08:30→17:25)
[2023-01-10 12:00] VITALS: TEMP 97.1
[2023-01-10] MEDS: MAGNESIUM HYDROXIDE 30 ML LIQUID UDC PO PRN ×2 (12:39→20:25)
[2023-01-10] MEDS: SENNOSIDES 1 TABLET PO SCH ×2 (14:58→20:25)
[2023-01-10] MEDS: DOCUSATE SODIUM 100 MG CAPSULE PO SCH ×2 (14:58→20:25)
[2023-01-10 16:12] VITALS: TEMP 97.6
[2023-01-10 20:32] VITALS: BP 102/38; TEMP 98.7; O2SAT 97
[2023-01-10] MEDS ORDERED: BISACODYL 10 MG SUPP.RECT RC PRN (21:30)
[2023-01-10] MEDS: TEMAZEPAM 15 MG CAPSULE PO PRN (22:05)
[2023-01-11] MEDS ORDERED: FLEET ENEMA 133 ML BOTTLE RC ONE (00:30)
[2023-01-11 04:00] VITALS: BP 133/49; TEMP 98.6; O2SAT 95
[2023-01-11] MEDS: ALENDRONATE SODIUM 70 MG TABLET PO SCH (06:00)
[2023-01-11] MEDS: LEVOTHYROXINE SODIUM 75 MCG TABLET PO SCH (06:00)
[2023-01-11] MEDS: PANTOPRAZOLE SODIUM 40 MG TABLET.DR PO SCH (06:36)
[2023-01-11] MEDS: PREGABALIN 25 MG CAPSULE PO SCH ×2 (09:19→16:45)
[2023-01-11] MEDS: CLONAZEPAM 1 MG TABLET PO SCH (09:20)
[2023-01-11] MEDS: ESCITALOPRAM OXALATE 10 MG TABLET PO SCH (09:20)
[2023-01-11] MEDS: MEMANTINE HCL 10 MG TABLET PO SCH ×2 (09:20→16:45)
[2023-01-11] MEDS: DOCUSATE SODIUM 100 MG CAPSULE PO SCH ×2 (09:20→20:40)
[2023-01-11] MEDS ORDERED: BUPIVACAINE 0.25% 30 ML VIAL ONE (10:36)
[2023-01-11] MEDS ORDERED: POLYMYXIN B SULFATE 500,000 UNITS VIAL ONE (10:37)
[2023-01-11] MEDS ORDERED: VANCOMYCIN 1000 MG VIAL ONE (10:37)
[2023-01-11] MEDS ORDERED: ONDANSETRON 4 MG/2 ML VIAL ONE (11:00)
[2023-01-11] MEDS ORDERED: EPHEDRINE SULFATE 50 MG/ML AMPUL ONE (11:00)
[2023-01-11] MEDS ORDERED: PROPOFOL 200 MG/20 ML BOTTLE ONE (11:00)
[2023-01-11] MEDS ORDERED: LIDOCAINE-MPF 2% 5 ML VIAL ONE (11:00)
[2023-01-11] MEDS ORDERED: FENTANYL CITRATE 100 MCG/2 ML AMPUL ONE ×2 (11:27→13:04)
[2023-01-11 13:45] VITALS: BP 116/50; TEMP 98.1; O2SAT 98
[2023-01-11 16:00] VITALS: BP 108/47; TEMP 98.2; O2SAT 99
[2023-01-11] MEDS: POTASSIUM CHLORIDE 20 MEQ in IV D5 1/2 NS 1000 ML 1,000 ML IV PRN (16:44)
[2023-01-11] MEDS: MORPHINE SULFATE 2 MG/1 ML DISP.SYRIN IV PRN ×2 (16:44→20:41)
[2023-01-11 16:55] VITALS: O2SAT 97
[2023-01-11 19:40] VITALS: BP 104/34; TEMP 97.7; O2SAT 100
[2023-01-11] MEDS: SENNOSIDES 1 TABLET PO SCH (20:40)
[2023-01-12] VITALS (7 sets, daily range): BP systolic 95–101; BP diastolic 41–46; TEMP 97.5–98.8; O2SAT 98–100
[2023-01-12] MEDS: MORPHINE SULFATE 2 MG/1 ML DISP.SYRIN IV PRN ×3 (01:26→15:05)
[2023-01-12] MEDS: LEVOTHYROXINE SODIUM 75 MCG TABLET PO SCH (05:14)
[2023-01-12] MEDS: POTASSIUM CHLORIDE 20 MEQ in IV D5 1/2 NS 1000 ML 1,000 ML IV PRN (05:16)
[2023-01-12] MEDS: ALENDRONATE SODIUM 70 MG TABLET PO SCH (05:16)
[2023-01-12] MEDS: PANTOPRAZOLE SODIUM 40 MG TABLET.DR PO SCH (06:05)
[2023-01-12] MEDS: DOCUSATE SODIUM 100 MG CAPSULE PO SCH ×2 (08:56→20:01)
[2023-01-12] MEDS: MEMANTINE HCL 10 MG TABLET PO SCH ×2 (08:56→17:44)
[2023-01-12] MEDS: PREGABALIN 25 MG CAPSULE PO SCH ×2 (08:56→17:45)
[2023-01-12] MEDS: CLONAZEPAM 1 MG TABLET PO SCH (08:57)
[2023-01-12] MEDS: ESCITALOPRAM OXALATE 10 MG TABLET PO SCH (08:57)
[2023-01-12] MEDS ORDERED: SENN-175 PO (13:21)
[2023-01-12] MEDS ORDERED: DOCU-141 PO (13:21)
[2023-01-12] MEDS ORDERED: HYDR-3972 PO (13:21)
[2023-01-12] MEDS: HYDROCODONE/APAP 5-325MG TABLET PO PRN (17:45)
[2023-01-12] MEDS: SENNOSIDES 1 TABLET PO SCH (20:01)
[2023-01-13 04:05] VITALS: BP 134/53; TEMP 98.6; O2SAT 99
[2023-01-13] MEDS: MORPHINE SULFATE 2 MG/1 ML DISP.SYRIN IV PRN (04:35)
[2023-01-13] MEDS: LEVOTHYROXINE SODIUM 75 MCG TABLET PO SCH (06:12)
[2023-01-13] MEDS: PANTOPRAZOLE SODIUM 40 MG TABLET.DR PO SCH (06:12)
[2023-01-13] MEDS: HYDROCODONE/APAP 5-325MG TABLET PO PRN (06:13)
[2023-01-13] MEDS: CLONAZEPAM 1 MG TABLET PO SCH (08:04)
[2023-01-13] MEDS: DOCUSATE SODIUM 100 MG CAPSULE PO SCH (08:04)
[2023-01-13] MEDS: ESCITALOPRAM OXALATE 10 MG TABLET PO SCH (08:04)
[2023-01-13] MEDS: MEMANTINE HCL 10 MG TABLET PO SCH (08:04)
[2023-01-13] MEDS: PREGABALIN 25 MG CAPSULE PO SCH (08:04)
[2023-01-13 11:35] VITALS: BP 110/48; TEMP 97.5; O2SAT 98
[2023-01-13 12:00] VITALS: O2SAT 98
== END 2023-01-13 14:00 | DRG 493 ==
LOC: ER 20:15 → MEDSURG3 23:00
PROVIDERS: ADMIT Internal Medicine; ATTEND Nurse Practitioner Acute Care
PROC: 0QSK04Z Reposition Left Fibula with Internal Fixation Device, Open Approach (ICD-10-PCS; principal; 2023-01-11)
PROC: 0QSH0ZZ Reposition Left Tibia, Open Approach (ICD-10-PCS; 2023-01-11)
DX: S82.842A Displaced bimalleolar fracture of left lower leg, initial encounter for closed fracture (principal); E44.1 Mild protein-calorie malnutrition; F03.93 Unspecified dementia, unspecified severity, with mood disturbance; E87.1 Hypo-osmolality and hyponatremia; W01.0XXA Fall on same level from slipping, tripping and stumbling without subsequent striking against object, initial encounter; X50.1XXA Overexertion from prolonged static or awkward postures, initial encounter; Y93.E8 Activity, other personal hygiene; Y92.031 Bathroom in apartment as the place of occurrence of the external cause; R53.1 Weakness; R29.6 Repeated falls; E86.0 Dehydration; M80.88XD Other osteoporosis with current pathological fracture, vertebra(e), subsequent encounter for fracture with routine healing; Z79.899 Other long term (current) drug therapy; Z86.718 Personal history of other venous thrombosis and embolism; Z95.828 Presence of other vascular implants and grafts; Z79.83 Long term (current) use of bisphosphonates; M50.10 Cervical disc disorder with radiculopathy, unspecified cervical region; E78.5 Hyperlipidemia, unspecified; G89.29 Other chronic pain; E03.9 Hypothyroidism, unspecified; Z79.890 Hormone replacement therapy; I25.10 Atherosclerotic heart disease of native coronary artery without angina pectoris; I50.9 Heart failure, unspecified; M19.90 Unspecified osteoarthritis, unspecified site; E88.09 Other disorders of plasma-protein metabolism, not elsewhere classified; S92.335A Nondisplaced fracture of third metatarsal bone, left foot, initial encounter for closed fracture; S92.345A Nondisplaced fracture of fourth metatarsal bone, left foot, initial encounter for closed fracture; S92.252A Displaced fracture of navicular [scaphoid] of left foot, initial encounter for closed fracture; Z96.652 Presence of left artificial knee joint; Z87.440 Personal history of urinary (tract) infections; Z86.711 Personal history of pulmonary embolism; R79.89 Other specified abnormal findings of blood chemistry; K21.9 Gastro-esophageal reflux disease without esophagitis; F32.A Depression, unspecified
CPT/HCPCS: 36415; 70030-TC; 71045; 73600; 73610; 73630; 83735; 84100; 85025; 93005; 93307; A4663; A9150; C1713; G0378; J2270; J2405; J3010; J3370; J3480; J3490; J7040; J8499